=== PATIENT | female | born 1970 | race Caucasian/White ===

== ENCOUNTER 2016-12-24 07:18 | Day surgery (SDC) | payer OTHER, SELFPAY ==
[~2016-12-24 07:18] MED LIST: AZITHROMYCIN1 GM PO; BREO ELLIPTA 11 EACH INH; CEROVITE ADVANC1 TAB PO; DEXILANT60 MG PO; ELAVIL10 MG PO; ELAVIL25 MG PO; ESTRACE1 MG PO; KLOR-CON M2020 MEQ PO; LORATADINE10 MG PO; OMNICEF300 MG PO; PROAIR HFA8.5 GM INH; SAXENDA3 MG/0.5 M SUBCUT; VIIBRYD10 MG PO; ZOFRAN ODT4 MG PO
== END 2016-12-24 14:37 | disposition short-term general hospital (02) ==
LOC: SURGOP 07:18 → CLPAIN 07:18 → EDSTATUS 09:34 → SURGOP 14:37 → CLPAIN 15:02
PROC: 3E0R33Z Introduction of Anti-inflammatory into Spinal Canal, Percutaneous Approach (ICD-10-PCS; principal; 2016-12-24)
PROC: 3E0R3BZ Introduction of Anesthetic Agent into Spinal Canal, Percutaneous Approach (ICD-10-PCS; 2016-12-24)
PROC: BR19ZZZ Fluoroscopy of Lumbar Spine (ICD-10-PCS; 2016-12-24)
DX: M54.16 Radiculopathy, lumbar region (principal); Z88.1 Allergy status to other antibiotic agents; Z88.8 Allergy status to other drugs, medicaments and biological substances; Z79.899 Other long term (current) drug therapy
CPT/HCPCS: J1040; Q9967